=== PATIENT | male | born 1950 | race Caucasian/White ===

== ENCOUNTER 2017-05-10 12:55 | Inpatient (IN) | payer OTHER ==
[2017-05-10 14:44] VITALS: BMI 22.1
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
[2017-05-10] MEDS ORDERED: P-EPHED 60MG/TRIPROLIDI 2.5MG TABLET PO PRN (17:11)
[2017-05-10] MEDS ORDERED: diphenhydrAMINE HCL 50 MG CAPSULE PO PRN (17:11)
[2017-05-10] MEDS ORDERED: MAGNESIUM HYDROX 2400MG/30ML ORAL SUSPENSION 30 ML CUP PO PRN (17:11)
[2017-05-10] MEDS ORDERED: chlordiazePOXIDE HCL 25 MG CAPSULE PO PRN (17:11)
[2017-05-10] MEDS ORDERED: MAG HYDROX/AL HYDROX/SIMETH 30 ML UNIT-DOSE CUP PO PRN (17:11)
[2017-05-10] MEDS ORDERED: MENTHOL/PHENOL 1 EACH UD MM PRN (17:11)
[2017-05-10] MEDS ORDERED: NICOTINE POLACRILEX 2 MG GUM BC PRN (17:11)
[2017-05-10] MEDS ORDERED: guaiFENesin/D-METHORPHAN HB 10 ML UNIT-DOSE CUPS PO PRN (17:11)
[2017-05-10] MEDS ORDERED: MAGNESIUM CITRATE 300 ML BOTTLE PO PRN (17:11)
[2017-05-10] MEDS ORDERED: LOPERAMIDE HCL 2 MG CAPSULE PO PRN (17:11)
[2017-05-10] MEDS ORDERED: ACETAMINOPHEN 325 MG TABLET (FP) PO PRN (17:11)
[2017-05-10] MEDS ORDERED: ALBUTEROL SO4 18 GM HFA INHALER IH PRN (17:13)
[2017-05-10] MEDS ORDERED: NICOTINE 14 MG/24 HOURS TOPICAL PATCH TD PRN (18:00)
[2017-05-10] MEDS: BACITRACIN 0.9 GM PACKET TP SCH ×2 (19:15→22:12)
[2017-05-10] MEDS ORDERED: cloNIDine HCL 0.1 MG TABLET PO PRN (19:24)
[2017-05-10] MEDS ORDERED: chlordiazePOXIDE HCL 25 MG CAPSULE PO ONE (20:38)
[2017-05-10] MEDS: THIAMINE HCL 100 MG TABLET (FP) PO SCH (22:12)
[2017-05-10] MEDS: chlordiazePOXIDE HCL 25 MG CAPSULE PO SCH (22:12)
[2017-05-10] MEDS: RANITIDINE HCL 150 MG TABLET (FP) PO SCH (22:12)
[2017-05-10 22:30] LABS: URINE APPEARANCE CLEAR; URINE BILIRUBIN NEGATIVE (NEGATIVE); URINE BLOOD 1+ (NEGATIVE); URINE COLOR DKYELLOW; URINE GLUCOSE (UA) NEGATIVE (NEGATIVE); URINE KETONE TRACE (NEGATIVE); URINE NITRITE NEGATIVE (NEGATIVE)
[2017-05-10 22:33] LABS: URINE PROTEIN 2+ (NEGATIVE)
[2017-05-10 23:42] LABS: URINE MUCUS 2+; URINE WBC 0-2 /hpf (3-5)
[2017-05-11] MEDS: chlordiazePOXIDE HCL 25 MG CAPSULE PO SCH ×4 (06:10→22:36)
[2017-05-11 10:17] LABS: MCH 33.3 pg (25.7-33.7); MCHC 33.3 g/dl (32.0-35.9); MEAN PLT VOLUME 8.5 fl (7.5-11.1); PLATELET COUNT 80 K/MM3 (134-434); RDW 17.2 % (11.9-15.9)
[2017-05-11 10:20] LABS: URINE LEUK ESTERASE Negative (NEGATIVE)
[2017-05-11] MEDS: PRENATAL VITAMINS W/ FOLIC ACID TABLET (FP) PO SCH (10:39)
[2017-05-11] MEDS: BACITRACIN 0.9 GM PACKET TP SCH ×4 (10:40→22:38)
[2017-05-11] MEDS: RANITIDINE HCL 150 MG TABLET (FP) PO SCH ×2 (10:40→22:36)
--- NOTE | 2017-05-11 10:45 | EKG ---
Test Reason : Blood Pressure : / mmHG Vent. Rate : 093 BPM Atrial Rate : 093 BPM P-R Int : 174 ms QRS Dur : 074 ms QT Int : 346 ms P-R-T Axes : 080 052 043 degrees QTc Int : 430 ms NORMAL SINUS RHYTHM NORMAL ECG NO PREVIOUS ECGS AVAILABLE Confirmed by SRI LOMAS MD ([id number]) on 05/11/2017 10:45:13 AM Referred By: Confirmed By:SRI LOMAS MD
[2017-05-11 10:46] LABS: ALBUMIN 3.8 g/dl (3.4-5.0); ALK PHOS 110 U/L (45-117); ANION GAP 8 (8-16); BILIRUBIN,TOTAL 1.6 mg/dL (0.2-1.0); CALCIUM 8.3 mg/dL (8.5-10.1); CO2 31 mmol/L (21-32); CREATININE 1.4 mg/dL (0.7-1.3); GLUCOSE,RANDOM 104 mg/dL (74-106); SGOT/AST 400 U/L (15-37); SGPT/ALT 326 U/L (12-78); TOT PROT 6.7 g/dl (6.4-8.2)
--- NOTE | 2017-05-11 10:55 | PN ---
[facility] CIWA - CIWA Score Nausea/Vomitin-No Nausea/No Vomiting Muscle Tremors: 4-Moderate,w/Arms Extend Anxiety: 1-Mildly Anxious Agitation: 3 Paroxysmal Sweats: 1-Minimal Palms Moist Orientation: 0-Oriented Tacttile Disturbances: 3-Moderate Itch/Numb/Burn Auditory Disturbances: 0-None Visual Disturbances: 0-None Headache: 0-None Present CIWA-Ar Total Score: 12 BHS Progress Note (SOAP) Subjective: ANXIETY,CHILLS,FATIGUE, TREMORS. Objective: 05/11/17 10:54 Vital Signs Temperature 97.0 F L 05/11/17 09:22 Pulse Rate 79 05/11/17 09:22 Respiratory Rate 18 05/11/17 09:22 Blood Pressure 124/86 05/11/17 09:22 O2 Sat by Pulse Oximetry (%) Laboratory Last Values WBC 3.0 K/mm3 (4.0-10.0) L 05/11/17 07:00 RBC 3.72 M/mm3 (4.00-5.60) L 05/11/17 07:00 Hgb 12.4 GM/dL (11.7-16.9) 05/11/17 07:00 Hct 37.2 % (35.4-49) 05/11/17 07:00 MCV 100.0 fl (80-96) H 05/11/17 07:00 MCH 33.3 pg (25.7-33.7) 05/11/17 07:00 MCHC 33.3 g/dl (32.0-35.9) 05/11/17 07:00 RDW 17.2 % (11.9-15.9) H 05/11/17 07:00 Plt Count 80 K/MM3 (134-434) L 05/11/17 07:00 MPV 8.5 fl (7.5-11.1) 05/11/17 07:00 Sodium 134 mmol/L (136-145) L 05/11/17 07:00 Potassium 3.9 mmol/L (3.5-5.1) 05/11/17 07:00 Chloride 95 mmol/L (98-107) L 05/11/17 07:00 Carbon Dioxide 31 mmol/L (21-32) 05/11/17 07:00 Anion Gap 8 (8-16) 05/11/17 07:00 BUN 19 mg/dL (7-18) H 05/11/17 07:00 Creatinine 1.4 mg/dL (0.7-1.3) H 05/11/17 07:00 Creat Clearance w eGFR 50.40 (>60) 05/11/17 07:00 Random Glucose 104 mg/dL (74-106) 05/11/17 07:00 Calcium 8.3 mg/dL (8.5-10.1) L 05/11/17 07:00 Total Bilirubin 1.6 mg/dL (0.2-1.0) H 05/11/17 07:00 AST 400 U/L (15-37) H 05/11/17 07:00 ALT 326 U/L (12-78) H 05/11/17 07:00 Alkaline Phosphatase 110 U/L (45-117) 05/11/17 07:00 Total Protein 6.7 g/dl (6.4-8.2) 05/11/17 07:00 Albumin 3.8 g/dl (3.4-5.0) 05/11/17 07:00 Urine Color Dkyellow 05/10/17 22:10 Urine Appearance Clear 05/10/17 22:10 Urine pH 6.0 (5.0-8.0) 05/10/17 22:10 Ur Specific [place] 1.025 (1.005-1.025) 05/10/17 22:10 Urine Protein 2+ (NEGATIVE) H 05/10/17 22:10 Urine Glucose (UA) Negative (NEGATIVE) 05/10/17 22:10 Urine Ketones Trace (NEGATIVE) H 05/10/17 22:10 Urine Blood 1+ (NEGATIVE) H 05/10/17 22:10 Urine Nitrite Negative (NEGATIVE) 05/10/17 22:10 Urine Bilirubin Negative (NEGATIVE) 05/10/17 22:10 Urine Urobilinogen 2.0 mg/dL (0.2-1.0) 05/10/17 22:10 Ur Leukocyte Esterase Negative (NEGATIVE) 05/10/17 22:10 Urine RBC 4-8 /hpf (0-3) 05/10/17 22:10 Urine WBC 0-2 /hpf (3-5) 05/10/17 22:10 Urine Mucus 2+ 05/10/17 22:10 Assessment: 05/11/17 10:55 WITHDRAWAL SX Plan: CONTINUE DETOX/ 1/2 HR MONITORING.
--- NOTE | 2017-05-11 11:05 | CONSULT ---
[facility] Psychiatric Consult - Data Date of interview: 05/11/17 Admission source: [facility] Identifying data: This is 67 years old male with no psychiatric hospitalization history intoxicated with: Alcohol and Cannabis Substance Abuse History: - Smoking Cessation. Smoking history: Former smoker. Have you smoked in the past 12 months: No. Cigars Per Day: 2 (refuses nicotine therapy). Hx Chewing Tobacco Use: No. Initiated information on smoking cessation: No. - Substance & Tx. History. Hx Alcohol Use: Yes. Hx Substance Use: Yes. Substance Use Type: Alcohol, Marijuana. Hx Substance Use Treatment: No. - Substances Abused. Alcohol-wine. Route: Oral. Frequency: Daily. Amount used: 1/2 gal. Age of first use: 9. Date of Last Use: 05/10/17. Marijuana. Route: Smoking. Frequency: 3-6 times per week. Amount used: 3-4 puffs. Age of first use: 15. Date of Last Use: 04/26/17 Medical History: Weight loss history, GERD, Asthma Psychiatric History: Denies oast psychiatric history Physical/Sexual Abuse/Trauma History: Denies Additional Comment: Observation. Detox Unit Care Protocol Mental Status Exam - Mental Status Exam Alert and Oriented to: Person Cognitive Function: Fair Patient Appearance: Unkempt Mood: Anxious Affect: Mood Congruent Patient Behavior: Cooperative Speech Pattern: Appropriate Voice Loudness: Mildly Soft/Quiet Thought Process: Circumstantial Thought Disorder: Being Controlled Hallucinations: Denies Suicidal Ideation: Denies Homicidal Ideation: Denies Insight/Judgement: Fair Sleep: Difficulty falling asleep Appetite: Weight loss Muscle strength/Tone: Mild Hypotonicity Gait/Station: Shuffling Additional Comments: Observation. Detox Unit Care Protocol Psychiatric Findings - Problem List ([place] 1, 2,3) (1) Alcohol dependence with uncomplicated withdrawal Current Visit: Yes Status: Acute (2) Weight loss Current Visit: Yes Status: Acute (3) Cannabis abuse Current Visit: Yes Status: Acute (4) Drug-induced mood disorder Current Visit: Yes Status: Suspected - Initial Treatment Plan Initial Treatment Plan: Observation. Detox Unit Care Protocol
[2017-05-11] MEDS ORDERED: chlordiazePOXIDE HCL 25 MG CAPSULE PO ONE (14:36)
[2017-05-11] MEDS: THIAMINE HCL 100 MG TABLET (FP) PO SCH (22:36)
[2017-05-12] MEDS: chlordiazePOXIDE HCL 25 MG CAPSULE PO SCH ×2 (05:09→11:11)
--- NOTE | 2017-05-12 09:42 | DS ---
[facility] Detox Discharge Summary Admission Date: 05/10/17 Discharge Date: 05/12/17 - History Present History: Alcohol Dependence Additional Comments: patient does not want to stay, advised of risks of not completing detox, denies h/o seizures, agrees he is dehydrated reviewed labwork with patient - Physical Exam Results Vital Signs: Vital Signs Temperature 96.2 F L 05/12/17 06:13 Pulse Rate 69 05/12/17 06:13 Respiratory Rate 16 05/12/17 06:13 Blood Pressure 99/60 05/12/17 06:13 O2 Sat by Pulse Oximetry (%) Laboratory Tests 05/10/17 05/11/17 05/11/17 22:10 07:00 07:00 WBC 3.0 L RBC 3.72 L Hgb 12.4 Hct 37.2 MCV 100.0 H MCH 33.3 MCHC 33.3 RDW 17.2 H Plt Count 80 L MPV 8.5 Sodium 134 L Potassium 3.9 Chloride 95 L Carbon Dioxide 31 Anion Gap 8 BUN 19 H Creatinine 1.4 H Creat Clearance w eGFR 50.40 Random Glucose 104 Calcium 8.3 L Total Bilirubin 1.6 H AST 400 H ALT 326 H Alkaline Phosphatase 110 Total Protein 6.7 Albumin 3.8 Urine Color Dkyellow Urine Appearance Clear Urine pH 6.0 Ur Specific [place] 1.025 Urine Protein 2+ H Urine Glucose (UA) Negative Urine Ketones Trace H Urine Blood 1+ H Urine Nitrite Negative Urine Bilirubin Negative Urine Urobilinogen 2.0 Ur Leukocyte Esterase Negative Urine RBC 4-8 Urine WBC 0-2 Urine Mucus 2+ RPR Titer 05/11/17 07:00 WBC RBC Hgb Hct MCV MCH MCHC RDW Plt Count MPV Sodium Potassium Chloride Carbon Dioxide Anion Gap BUN Creatinine Creat Clearance w eGFR Random Glucose Calcium Total Bilirubin AST ALT Alkaline Phosphatase Total Protein Albumin Urine Color Urine Appearance Urine pH Ur Specific [place] Urine Protein Urine Glucose (UA) Urine Ketones Urine Blood Urine Nitrite Urine Bilirubin Urine Urobilinogen Ur Leukocyte Esterase Urine RBC Urine WBC Urine Mucus RPR Titer Nonreactive dehydrated Pertinent Admission Physical Exam Findings: withdrawal sx - Treatment Hospital Course: Detox Protocol Followed - Medication Discharge Medications: Ambulatory Orders Albuterol Sulfate Inhaler - [Ventolin HFA Inhaler -] 2 inh PO Q4H PRN 05/10/17 - Diagnosis (1) Alcohol dependence with uncomplicated withdrawal Current Visit: Yes Status: Acute (2) Cannabis abuse Current Visit: Yes Status: Acute (3) Weight loss Current Visit: Yes Status: Acute (4) Asthma Current Visit: Yes Status: Chronic Qualifiers: Asthma severity: mild Asthma persistence: persistent Asthma complication type: uncomplicated Qualified Code(s): J45.30 - Mild persistent asthma, uncomplicated; J45.30 - Mild persistent asthma, uncomplicated ; J45.30 - Mild persistent asthma, uncomplicated (5) GERD (gastroesophageal reflux disease) Current Visit: Yes Status: Chronic Qualifiers: Esophagitis presence: without esophagitis Qualified Code(s): K21.9 - Gastro-esophageal reflux disease without esophagitis; K21.9 - Gastro- esophageal reflux disease without esophagitis; K21.9 - Gastro-esophageal reflux disease without esophagitis (6) Drug-induced mood disorder Current Visit: Yes Status: Suspected (7) Dehydration Current Visit: Yes Status: Acute - AMA Did Patient Leave Against Medical Advice: Yes
[2017-05-12 10:37] VITALS: BP 119/74; PULSE 94; TEMP 98.2
[2017-05-12] MEDS: BACITRACIN 0.9 GM PACKET TP SCH (11:10)
[2017-05-12] MEDS: RANITIDINE HCL 150 MG TABLET (FP) PO SCH (11:11)
[2017-05-12] MEDS: PRENATAL VITAMINS W/ FOLIC ACID TABLET (FP) PO SCH (11:11)
[2017-05-12] MEDS ORDERED: chlordiazePOXIDE 5 MG CAPSULE PO SCH (23:00)
[2017-05-13] MEDS ORDERED: chlordiazePOXIDE HCL 10 MG CAPSULE PO SCH (23:00)
== END 2017-05-12 13:18 | disposition left against medical advice (07) | DRG 894 ==
LOC: YASAS 12:55 → Y3N 17:27
PROVIDERS: ADMIT Internal Medicine; ATTEND Internal Medicine
PROC: HZ2ZZZZ Detoxification Services for Substance Abuse Treatment (ICD-10-PCS; principal; 2017-05-10)
DX: F10.230 Alcohol dependence with withdrawal, uncomplicated (principal); F12.10 Cannabis abuse, uncomplicated; F19.24 Other psychoactive substance dependence with psychoactive substance-induced mood disorder; E86.0 Dehydration; K21.9 Gastro-esophageal reflux disease without esophagitis; R63.4 Abnormal weight loss; Z68.22 Body mass index [BMI] 22.0-22.9, adult
CPT/HCPCS: 36415; 80053; 81003; 81015; 85027; 86593; 93005; 93010